=== PATIENT | female | born 1950 | race Caucasian/White ===

== ENCOUNTER 2020-11-26 08:19 | Emergency (ER) | payer OTHER ==
[~2020-11-26] VITALS: Ht 160 cm; Wt 57.6 kg
[~2020-11-26 08:19] MED LIST: OMEP20ER
[2020-11-26] MEDS ORDERED: Prinivil5 MG PO (10:43)
[2020-11-26] MEDS ORDERED: XARELTO15 MG PO (10:43)
[2020-11-26 10:50] LABS: BASOPHILS ABSOLUTE AUTO 0.04 K/mm3 (0.00-0.23); BASOPHILS PERCENT AUTO 1 % (0-2); EOSINOPHILS ABSOLUTE AUTO 0.09 K/mm3 (0.00-0.68); EOSINOPHILS PERCENT AUTO 1 % (0-6); Hematocrit 46.1 % (33.0-51.0); Hemoglobin 15.5 g/dL (11.5-16.0); IMMATURE GRAN ABSOLUTE AUTO 0.02 K/mm3 (0.00-0.10); IMMATURE GRAN PERCENT AUTO 0 % (0-1); LYMPHOCYTES ABSOLUTE AUTO 1.08 K/mm3 (0.84-5.20); LYMPHOCYTES PERCENT AUTO 15 % (21-46); MONOCYTES ABSOLUTE AUTO 0.71 K/mm3 (0.16-1.47); MONOCYTES PERCENT AUTO 10 % (4-13); Mean Corpuscular HGB 31.2 pg (26.0-34.0); Mean Corpuscular HGB Conc 33.6 g/dL (31.5-36.5); Mean Corpuscular Volume 93 fL (80-100); Mean Platelet Volume 9.8 fL (9.1-12.4); NEUTROPHILS ABSOLUTE AUTO 5.29 K/mm3 (1.96-9.15); NEUTROPHILS PERCENT AUTO 73 % (41-73); Platelet Count 142 K/mm3 (150-400); RDW Coefficient Variation 11.8 % (11.7-14.2); RDW Standard Deviation 39.9 fL (35.1-46.3); Red Blood Cell Count 4.97 M/mm3 (3.80-5.20); White Blood Cell Count 7.23 K/mm3 (4.00-11.30)
[2020-11-26 11:05] LABS: International Normalized Ratio 1.07; Prothrombin Time Results 11.4 Sec (9.7-11.5)
[2020-11-26 11:07] LABS: Alanine Aminotransfer (ALT/SGP 17 U/L (12-78); Albumin, Blood 3.3 g/dL (3.4-5.0); Albumin/Globulin Ratio 0.9 (0.8-1.8); Alk Phos 88 U/L (50-136); Anion Gap 3 mmol/L (6-16); Aspartate Aminotrans (AST/SGOT 21 U/L (12-37); Bilirubin, Total 0.5 mg/dL (0.1-1.0); Blood Urea Nitrogen 13 mg/dL (8-24); CO2, Blood 29 mmol/L (21-32); Calcium, Blood 8.7 mg/dL (8.5-10.1); Chloride, Blood 108 mmol/L (98-108); Creatinine, Blood 0.59 mg/dL (0.40-1.00); Globulin, Blood 3.7 g/dL (2.2-4.0); Glomerular Filtration Rate >60 (60-); Glucose, Blood 113 mg/dL (70-99); Potassium, Blood 4.2 mmol/L (3.5-5.5); Sodium, Blood 140 mmol/L (136-145)
== END 2020-11-26 11:43 | disposition home or self-care (01) ==
LOC: ER 08:19
PROVIDERS: Emergency Medicine
DX: I82.412 Acute embolism and thrombosis of left femoral vein (principal); I10 Essential (primary) hypertension
CPT/HCPCS: 36415; 73562-LT; 80053; 85025; 85610; 93971; 96374; 99284-25; A9270; J0360

== ENCOUNTER 2024-04-24 09:38 | Observation (INO) | payer OTHER ==
[~2024-04-24] VITALS: Ht 160 cm; Wt 64.0 kg
[~2024-04-24 09:38] MED LIST changes: +Prinivil5 MG PO; +XARELTO15 MG PO
[2024-04-24] MEDS ORDERED: Diphth,Pertuss(Acell),Tet Vac 0.5 ML VIAL IM ONE (09:55)
[2024-04-24] MEDS ORDERED: FentaNYL Citrate 50 MCG/ML 2 ML Injection IV PRN ×2 (10:05→15:55)
[2024-04-24] MEDS ORDERED: XARELTO20 M1 PO (10:56)
[2024-04-24] MEDS ORDERED: OMEP20ER PO (10:56)
[2024-04-24] MEDS ORDERED: LISI20 PO (10:56)
[2024-04-24] MEDS ORDERED: HYDROcodone 5-APAP 325 TAB PO ONE (12:20)
[2024-04-24] MEDS ORDERED: HYDROmorphone HCl/Pf 1MG SYR IV ONE (12:20)
[2024-04-24] MEDS ORDERED: Lidocaine/Tetracaine/Epinephr 3 ML GEL SYRINGE TOP ONE (12:20)
[2024-04-24 14:02] VITALS: BP 143/59
[2024-04-24] MEDS ORDERED: Ondansetron HCl 2 MG / ML 2ML Vial IV PRN (15:55)
[2024-04-24] MEDS ORDERED: OxyCODONE 5 mg/Acetamin 325 mg TABLET PO PRN (15:55)
[2024-04-24] MEDS ORDERED: Acetaminophen 325 MG TABLET PO PRN (15:55)
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
[2024-04-24 20:10] VITALS: BP 122/71
[2024-04-25 03:14] VITALS: BP 168/61
--- NOTE | 2024-04-25 05:05 | NUR ---
SUMMARY- PAIN MANAGED WELL. PT IS ABLE TO AMBULATE TO BATHROOM. PT HAS BEEN RESTING WITHOUT ISSUE. PT IS EAGER TO GO HOME. PT HAS NO NEW ISSUES. CALL LIGHT IN REACH.
[2024-04-25 07:14] VITALS: BP 124/63
[2024-04-25] MEDS ORDERED: Enoxaparin 40 MG/0.4 ML SYR SC SCH (09:00)
[2024-04-25] MEDS ORDERED: TraMADol HCl 50 MG Tab PO PRN (10:45)
--- NOTE | 2024-04-25 10:45 | NUR ---
PATEINT WITH EXTREME NAUSEA SINCE TAKING PERCOCET. DISCUSSION WITH PATIENT REGARDING PREVIOUS PAIN MEDS FOR INJURIES; SHE HAS ALWAYS HAD DIFFICULTY TOLERATING PAIN MEDS. CALL TO DR. HERNANDEZ: T.O. FOR TRAMADOL 50MG Q6H PRN TO SEE IF THIS HELPS IWTH NAUSEA.
[2024-04-25] MEDS ORDERED: Ibuprofen 400 MG Tab PO PRN (11:25)
[2024-04-25] MEDS ORDERED: Prochlorperazine Maleate 5 MG Tab PO PRN (11:30)
[2024-04-25 15:07] VITALS: BP 120/61
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
[2024-04-25 21:12] VITALS: BP 144/66
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
[2024-04-26 05:12] VITALS: BP 141/73
[2024-04-26 07:50] VITALS: BP 125/65
[2024-04-26] MEDS ORDERED: MASOPHEN325 MG PO (10:33)
[2024-04-26] MEDS ORDERED: TRAM50 PO (10:34)
[2024-04-26] MEDS ORDERED: ONDA4 PO (10:35)
--- NOTE | 2024-04-26 11:24 | NUR ---
DISCHARGE/SHIFT SUMMARY: A&Ox4. PLEASANT AND COOPERATIVE WITH CARE. CALLS APPROPRIATELY AND IS ABLE TO ADVOCATE NEEDS EFFECTIVELY. AMBULATING INDEPENDENTLY WITHIN ROOM. MINIMAL PAIN, ONLY WORSENED WHEN BENDING. CONTINENT BOTH BOWEL AND BLADDER; NO BM SINCE ADMIT, BUT REPORTS I WON T POOP ANYWHERE BUT HOME, SO DON T EVEN TRY. REPORTS SHE WILL NOTIFY PROVIDER IF SHE EXPERIENCES ANY CONSTIPATION. HARD COPIES Rx TRAMADOL AND ZOFRAN GIVEN TO PT; COPIES MADE FOR CHART AND COPIES FAXED TO [facility] FOR PICK-UP TODAY. SPOKE WITH PHARMACIST AND LET HER KNOW PT WILL BE COMING IN TODAY TO PICK THESE UP. PRN IBU ADMINISTERED JUST PRIOR TO LEAVING. INSTRUCTED TO CALL PCP S OFFICE TOMORROW TO SCHEDULE FOLLOW-UP. CONTINUE WITH INCENTIVE SPIROMETER TO MITIGATE PNEUMONIA RISK. PATIENT ESCORTED FROM FLOOR BY RYAN PALMA CNA VIA WHEELCHAIR WITH ALL BELONGINGS AND DISCHARGE PACKET. TRANSPORT BY POV BY DAUGHTER.
== END 2024-04-26 11:04 | disposition home or self-care (01) ==
LOC: ER 09:38 → MEDS 09:39 → ERHOLD 12:09 → ER 12:09 → MEDS 12:09 → ERHOLD 14:05 → ENPENDDIS 04-26 10:42 → MEDS 04-26 11:04
PROVIDERS: ADMIT Surgery
DX: S22.41XA Multiple fractures of ribs, right side, initial encounter for closed fracture (principal); V86.55XA Driver of 3- or 4- wheeled all-terrain vehicle (ATV) injured in nontraffic accident, initial encounter; R91.8 Other nonspecific abnormal finding of lung field; I10 Essential (primary) hypertension; K21.9 Gastro-esophageal reflux disease without esophagitis; Z86.718 Personal history of other venous thrombosis and embolism; Z79.01 Long term (current) use of anticoagulants; Z79.899 Other long term (current) drug therapy
CPT/HCPCS: 70450; 71260; 72125; 73080; 74177; 90471; 90715; 94762; 96372; 96374; 96375; 96376; 99285-25; A9270; G0378; J1170; J1650; J2405; J3010; Q0164; Q9967